=== PATIENT | male | born 1960 | race Caucasian/White ===

== ENCOUNTER 2017-05-29 09:38 | Outpatient (CLI) | payer OTHER ==
--- NOTE | 2017-05-29 11:21 | MRI ---
MRI OF THE LUMBAR SPINE: Date: 05/29/17 COMPARISON: None. HISTORY: Bilateral leg pain for several years, lumbar radicular pain. TECHNIQUE: Multiplanar, multisequence MR imaging of the lumbar spine is provided without contrast. FINDINGS: The sagittal STIR imaging demonstrates no focal area of osseous marrow edema. No significant anterol isthesis or retrolisthesis noted. Assuming five lumbar-type vertebral bodies, conus medullaris termi nates in the T12-L1 region. T12-L1: Intervertebral disc height and signal intensity appears within normal limits with no significant kathi tral canal or neural foraminal stenosis. L1-2: Mild bilateral facet hypertrophy. Mild anterior osteophyte formation and disc space narrowing with n o significant central canal or neural foraminal stenosis. L2-3: Mild bilateral facet hypertrophy. Intervertebral disc height and signal intensity appears within nor mal limits with no significant central canal or neural foraminal stenosis. L3-4: Mild bilateral facet hypertrophy, left greater than right. Intervertebral disc height and signal int ensity appears within normal limits with no significant central canal or neural foraminal stenosis. L4-5: Bilateral facet hypertrophy noted. There is disc space narrowing and disc desiccation with mild disc bulge causing a mild degree of right lateral recess stenosis. There is a disc protrusion in the pos t foraminal and foraminal region on the right as well, which causes a moderate degree of right neura l foraminal stenosis with post foraminal disc material abutting the region of the L4 nerve root on t he right. No significant left neural foraminal stenosis. L5-S1: There is disc space narrowing, disc desiccation, and disc bulge. No significant central canal stenos is. There is bilateral facet hypertrophy with mild right and moderate left neural foraminal stenosis . There is no significant central canal stenosis. Imaged retroperitoneal structures demonstrate subcentimeter T2 hyperintensities within both kidneys, too small to characterize. The imaged retroperitoneal structures are grossly unremarkable otherwise . IMPRESSION: Multilevel degenerative change seen within the lumbar spine, most prominent at the L4-5 and L5-S1 le vels with associated neural foraminal stenosis. POS: [facility]
== END 2017-05-29 09:39 | disposition home or self-care (01) ==
LOC: MRI 09:38
PROVIDERS: ATTEND Specialist
DX: M48.061 Spinal stenosis, lumbar region without neurogenic claudication (principal); M47.26 Other spondylosis with radiculopathy, lumbar region
CPT/HCPCS: 72148

== ENCOUNTER 2018-07-28 19:33 | Emergency (ER) | payer OTHER ==
[2018-07-28] MEDS ORDERED: Mag-Al 1200 mg/1200 mg/30 ML UDCUP ONE (20:00)
[2018-07-28] MEDS ORDERED: Lidocaine Viscous Sol 2% 15 ml UD Cup ONE (20:01)
[2018-07-28] MEDS ORDERED: diphenhydrAMINE 25 MG CAP ONE (20:04)
[2018-07-28] MEDS ORDERED: Famotidine 20 MG TAB ONE (20:04)
[2018-07-28] MEDS ORDERED: Dexamethasone 4 mg/ml Vial ONE (20:57)
--- NOTE | 2018-07-28 21:50 | ULT ---
GALLBLADDER ULTRASOUND: HISTORY: Right upper quadrant pain. FINDINGS: Real-time imaging of the right upper quadrant shows echogenic foci with shadowing within the gallblad kimmy, consistent with gallstones. There are echogenic changes of the liver. Within the right lobe, t here is an area of what appears to be focal fatty sparing, when reviewing the previous CT. The right kidney is normal in size and not obstructed. The pancreas is obscured. The common duct is 6 mm. The technologist reports a positive ultrasound Chiang sign. IMPRESSION: Multiple cholelithiasis with a slightly thickened appearing gallbladder wall and a normal caliber com mon duct with a positive ultrasound Chiang sign. POS: [facility]
== END 2018-07-28 23:45 | disposition home or self-care (01) ==
LOC: ERS 19:33
DX: K80.20 Calculus of gallbladder without cholecystitis without obstruction (principal); L50.9 Urticaria, unspecified; M06.9 Rheumatoid arthritis, unspecified; F17.210 Nicotine dependence, cigarettes, uncomplicated
CPT/HCPCS: 76705; J1100